=== PATIENT | female | born 1990 | race Caucasian/White ===

== ENCOUNTER 2017-07-01 11:24 | Inpatient (IN) | payer MEDICARE, OTHER ==
[~2017-07-01] VITALS: Ht 182.9 cm; Wt 68.0 kg
[~2017-07-01 11:24] MED LIST: CIPR-230 PO; CYCL-1 PO; HYDR-3965 PO
[2017-07-01] MEDS ORDERED: normal saline 1000ML IV soln IVB ONE ×2 (12:35→15:15)
[2017-07-01] MEDS ORDERED: diphenhydrAMINE 50 mg/ml inj IV ONE (12:40)
[2017-07-01] MEDS ORDERED: morphine 4 MG/ML inj SYRINge IV ONE ×2 (12:40→15:05)
[2017-07-01] MEDS ORDERED: famotidine/PF 10 mg/ml inj IV ONE (12:40)
[2017-07-01] MEDS ORDERED: morphine 4 MG/ML inj SYRINge IM ONE (13:30)
[2017-07-01] MEDS ORDERED: famotidine 20mg tablet PO ONE (13:30)
[2017-07-01] MEDS ORDERED: diphenhydrAMINE 50 mg/ml inj IM ONE (13:30)
[2017-07-01 13:46] LABS: BASOPHILS % (AUTO) 0 % (0-1); EOSINOPHILS # (AUTO) 0.4 X10'3 (0-0.9); EOSINOPHILS % (AUTO) 1.8 % (0-6); HEMATOCRIT 33.2 % (35.0-45.0); HEMOGLOBIN 11.3 g/dl (12.0-16.0); LYMPHOCYTES # (AUTO) 1.2 X10'3 (1.1-4.8); LYMPHOCYTES % (AUTO) 5.9 % (21-51); MEAN CORPUSCULAR HEMOGLOBIN 27.4 PG (27.0-31.0); MEAN CORPUSCULAR HGB CONC 34.1 % (33.0-36.5); MEAN CORPUSCULAR VOLUME 80.3 FL (78-98); MEAN PLATELET VOLUME 6.4 FL (7.4-10.4); MONOCYTES # (AUTO) 1.5 X10'3 (0-0.9); NEUTROPHILS # (AUTO) 17.8 X10'3 (1.8-7.7); NEUTROPHILS % (AUTO) 85.3 % (42-75); PLATELET COUNT 437 X10'3 (140-440); RED BLOOD COUNT 4.14 X10'6 (4.20-5.60); RED CELL DISTRIBUTION WIDTH 17.1 % (11.5-14.5); WHITE BLOOD COUNT 20.8 X10'3 (4.5-11.0)
[2017-07-01 14:07] LABS: D-DIMER 5.66 MG/L FEU (0-0.50); INR 1.1 INR; PARTIAL THROMBOPLASTIN TIME 29 SECONDS (22-32); PROTHROMBIN TIME 10.9 SECONDS (9.0-12.0)
[2017-07-01 14:16] LABS: ALANINE AMINOTRANSFERASE 139 U/L (12-78); ALBUMIN/GLOBULIN RATIO 0.3 (1.1-1.5); ALKALINE PHOSPHATASE 559 IU/L (46-116); ANION GAP 16 (8-16); ASPARTATE AMINO TRANSFERASE 45 U/L (10-37); BILIRUBIN,TOTAL 0.5 MG/DL (0.1-1.0); BLOOD UREA NITROGEN 96 MG/DL (7-18); BUN/CREATININE RATIO 15.1 (6.6-38.0); CALCIUM 11.4 MG/DL (8.5-10.1); CHLORIDE 104 MMOL/L (99-107); CREATINE KINASE 11 U/L (26-192); CREATININE 6.36 MG/DL (0.40-0.90); LACTATE DEHYDROGENASE 87 U/L (81-234); LIPASE 126 U/L (73-393); POTASSIUM 5.2 MMOL/L (3.5-5.1); SODIUM 135 MMOL/L (135-145); TOTAL CARBON DIOXIDE 15.4 MMOL/L (24-32); eGFR 8 ML/MIN
[2017-07-01 14:18] LABS: TOTAL CELLS COUNTED 100
[2017-07-01 14:19] LABS: ETHANOL < 0.010 GM/DL (0.0-0.010); GLUCOSE 98 MG/DL (70-104)
[2017-07-01 14:20] LABS: ANISOCYTOSIS 1+; PLATELET ESTIMATE NORMAL; ROULEAUX 1+; TOXIC GRANULATION 1+
[2017-07-01 14:37] LABS: CLARITY,URINE CLOUDY (Clear); COLOR,URINE YELLOW (Yellow); GLUCOSE, URINE NEGATIVE (Neg); KETONES,URINE NEGATIVE (Neg); LEUKOCYTE ESTERASE ,URINE LARGE (Neg); NITRITES, URINE NEGATIVE (Neg); OCCULT BLOOD,URINE LARGE (Neg); PROTEIN,URINE 100 mg/dl (Neg); UROBILINOGEN,URINE 0.2 E.U/dL (0.2-1.0)
[2017-07-01 14:44] LABS: UA COLLECTION TYPE CLN CATCH MIDSTREAM
[2017-07-01 14:49] LABS: BACTERIA,URINE 4+ /HPF (Neg); MUCUS STRANDS NONE SEEN /LPF (Neg); RBC,URINE 20-50 /HPF (0-2); SQUAMOUS EPITHELIAL CELL,UR FEW /LPF (FEW); WBC CLUMPS,URINE MANY /HPF (NEGATIVE); WBC,URINE TNTC /HPF (0-4)
[2017-07-01 14:51] LABS: URINE AMPHETAMINE SCREEN POSITIVE (Neg); URINE BARBITUATE SCREEN NEGATIVE (Neg); URINE BENZODIAZEPINES SCREEN NEGATIVE (Neg); URINE CANNABINOID SCREEN NEGATIVE (Neg); URINE COCAINE SCREEN NEGATIVE (Neg); URINE METHADONE SCREEN NEGATIVE (Neg); URINE OPIATE SCREEN POSITIVE (Neg); URINE PHENCYCLIDINE SCREEN NEGATIVE (Neg)
[2017-07-01 16:15] LABS: HCG SERUM QL NEGATIVE
[2017-07-01] MEDS ORDERED: mag hydrox/Alum hydrox/simeth 30ml oral suspension PO PRN (16:30)
[2017-07-01] MEDS ORDERED: ondansetron/PF 4mg/2ml inj IV PRN (16:30)
[2017-07-01] MEDS ORDERED: magnesium hydroxide 30ml (MOM) UD suspension PO PRN (16:30)
[2017-07-01] MEDS ORDERED: azithromycin/NS 500mg/250ml 250 ML IV ONE (16:35)
[2017-07-01] MEDS: normal saline 1000ml 1,000 ML IV SCH (16:51)
[2017-07-01] MEDS: HYDROcodone/acetaminophen 10/325mg tab PO PRN (19:00)
[2017-07-01] MEDS: heparin, porcine 5000 units/ml vial SQ SCH (20:00)
[2017-07-01] MEDS: acetaminophen 325mg tablet PO PRN (20:31)
[2017-07-01] MEDS ORDERED: HYDROmorphone 1 mg/ml syringe IV ONE (21:55)
[2017-07-01] MEDS ORDERED: LORazepam 2 mg/ml vial IV ONE (21:55)
[2017-07-01] MEDS ORDERED: HYDROmorphone inj. 0.5 MG/0.5 ML DISP.SYRIN ONE (22:18)
[2017-07-02] MEDS: normal saline 1000ml 1,000 ML IV SCH ×3 (03:19→21:29)
[2017-07-02] MEDS: HYDROcodone/acetaminophen 10/325mg tab PO PRN ×2 (05:21→21:30)
[2017-07-02] MEDS ORDERED: LORazepam 2 mg/ml vial IV ONE (06:25)
[2017-07-02] MEDS: heparin, porcine 5000 units/ml vial SQ SCH ×2 (08:00→20:00)
[2017-07-02 08:05] VITALS: BP 116/67
[2017-07-02 08:06] LABS: ALBUMIN 1.7 G/DL (3.4-5.0); ANION GAP 19 (8-16); BLOOD UREA NITROGEN 87 MG/DL (7-18); CALCIUM 10.5 MG/DL (8.5-10.1); CHLORIDE 108 MMOL/L (99-107); CREATININE 6.21 MG/DL (0.40-0.90); POTASSIUM 4.9 MMOL/L (3.5-5.1); SODIUM 139 MMOL/L (135-145); eGFR 8 ML/MIN
[2017-07-02 08:10] LABS: BASOPHILS % (AUTO) 0 % (0-1); EOSINOPHILS % (AUTO) 0.2 % (0-6); HEMATOCRIT 25.2 % (35.0-45.0); HEMOGLOBIN 8.6 g/dl (12.0-16.0); LYMPHOCYTES # (AUTO) 1.4 X10'3 (1.1-4.8); LYMPHOCYTES % (AUTO) 5.9 % (21-51); MEAN CORPUSCULAR HEMOGLOBIN 27.4 PG (27.0-31.0); MEAN CORPUSCULAR HGB CONC 34.2 % (33.0-36.5); MEAN CORPUSCULAR VOLUME 80.3 FL (78-98); MEAN PLATELET VOLUME 6.6 FL (7.4-10.4); MONOCYTES # (AUTO) 1.4 X10'3 (0-0.9); MONOCYTES % (AUTO) 5.7 % (2-12); NEUTROPHILS # (AUTO) 20.9 X10'3 (1.8-7.7); NEUTROPHILS % (AUTO) 88.2 % (42-75); PLATELET COUNT 378 X10'3 (140-440); RED BLOOD COUNT 3.13 X10'6 (4.20-5.60); RED CELL DISTRIBUTION WIDTH 16.1 % (11.5-14.5); WHITE BLOOD COUNT 23.6 X10'3 (4.5-11.0)
[2017-07-02 08:11] LABS: GLUCOSE 145 MG/DL (70-104)
[2017-07-02 08:13] LABS: TOTAL CARBON DIOXIDE 11.7 MMOL/L (24-32)
[2017-07-02] MEDS ORDERED: morphine 2 MG/ML inj. syringe IV PRN (08:40)
[2017-07-02] MEDS: morphine 4 MG/ML inj SYRINge IV PRN ×4 (09:14→19:50)
[2017-07-02] MEDS: CefTRIAXone inj 2,000 MG in normal saline 100ml IV soln 100 ML IV SCH (09:44)
[2017-07-02] MEDS: sodium bicarbonate 650mg tablet PO SCH ×3 (10:51→21:30)
[2017-07-02] MEDS: acetaminophen 325mg tablet PO PRN ×2 (10:59→18:32)
[2017-07-02 11:00] VITALS: BP 134/67
[2017-07-02] MEDS ORDERED: sodium bicarbonate (8.4%) inj. 100 MEQ in dextrose 5%-water 1,000 ML IV SCH (12:25)
[2017-07-02 15:00] VITALS: BP 140/72
[2017-07-02 17:35] LABS: ALBUMIN 1.6 G/DL (3.4-5.0); ANION GAP 14 (8-16); BLOOD UREA NITROGEN 81 MG/DL (7-18); CALCIUM 10.1 MG/DL (8.5-10.1); CHLORIDE 109 MMOL/L (99-107); CREATININE 6.22 MG/DL (0.40-0.90); POTASSIUM 4.7 MMOL/L (3.5-5.1); SODIUM 139 MMOL/L (135-145); TOTAL CARBON DIOXIDE 15.9 MMOL/L (24-32); eGFR 8 ML/MIN
[2017-07-02 17:36] LABS: GLUCOSE 107 MG/DL (70-104)
[2017-07-02 18:00] VITALS: BP 125/73
[2017-07-02 22:00] VITALS: BP 142/58
[2017-07-03] MEDS: WATER IV SCH ×2 (01:13→07:54)
[2017-07-03] MEDS: DEXTROSE 5% IV SCH ×2 (01:13→07:54)
[2017-07-03] MEDS: SODIUM ACETATE IV SCH ×2 (01:13→07:54)
[2017-07-03 02:00] VITALS: BP 146/70
[2017-07-03] MEDS: morphine 4 MG/ML inj SYRINge IV PRN ×2 (02:52→20:15)
[2017-07-03] MEDS: VANCOMYCIN LEVEL IV SCH (03:00)
[2017-07-03 05:15] LABS: BASOPHILS % (AUTO) 0.2 % (0-1); EOSINOPHILS # (AUTO) 0.3 X10'3 (0-0.9); EOSINOPHILS % (AUTO) 1.5 % (0-6); HEMATOCRIT 23.8 % (35.0-45.0); HEMOGLOBIN 8.1 g/dl (12.0-16.0); LYMPHOCYTES % (AUTO) 9.6 % (21-51); MEAN CORPUSCULAR HEMOGLOBIN 27.5 PG (27.0-31.0); MEAN CORPUSCULAR HGB CONC 33.8 % (33.0-36.5); MEAN CORPUSCULAR VOLUME 81.3 FL (78-98); MEAN PLATELET VOLUME 6.7 FL (7.4-10.4); MONOCYTES # (AUTO) 2.1 X10'3 (0-0.9); MONOCYTES % (AUTO) 9.8 % (2-12); NEUTROPHILS # (AUTO) 16.7 X10'3 (1.8-7.7); NEUTROPHILS % (AUTO) 78.9 % (42-75); PLATELET COUNT 361 X10'3 (140-440); RED BLOOD COUNT 2.92 X10'6 (4.20-5.60); RED CELL DISTRIBUTION WIDTH 16.5 % (11.5-14.5); WHITE BLOOD COUNT 21.2 X10'3 (4.5-11.0)
[2017-07-03 05:30] VITALS: BP 148/65
[2017-07-03 05:51] LABS: ALBUMIN 1.5 G/DL (3.4-5.0); ANION GAP 14 (8-16); BLOOD UREA NITROGEN 75 MG/DL (7-18); BUN/CREATININE RATIO 12.6 (6.6-38.0); CALCIUM 10.2 MG/DL (8.5-10.1); CHLORIDE 109 MMOL/L (99-107); CREATININE 5.94 MG/DL (0.40-0.90); GLUCOSE 109 MG/DL (70-104); POTASSIUM 4.4 MMOL/L (3.5-5.1); SODIUM 141 MMOL/L (135-145); TOTAL CARBON DIOXIDE 17.8 MMOL/L (24-32); eGFR 8 ML/MIN
[2017-07-03] MEDS ORDERED: vancomycin/NS 1 GM ADD-VANTAGE 250 ML IV PRN (06:00)
[2017-07-03 06:11] LABS: ANISOCYTOSIS 1+; PLATELET ESTIMATE NORMAL; TOTAL CELLS COUNTED 100
[2017-07-03] MEDS: sodium bicarbonate 650mg tablet PO SCH (07:54)
[2017-07-03] MEDS: HYDROcodone/acetaminophen 10/325mg tab PO PRN ×4 (07:56→22:38)
[2017-07-03] MEDS: normal saline 1000ml 1,000 ML IV SCH (07:56)
[2017-07-03] MEDS: heparin, porcine 5000 units/ml vial SQ SCH ×2 (08:00→20:00)
[2017-07-03] MEDS: CefTRIAXone inj 2,000 MG in normal saline 100ml IV soln 100 ML IV SCH (08:04)
[2017-07-03 09:54] LABS: ALANINE AMINOTRANSFERASE 57 U/L (12-78); ALBUMIN/GLOBULIN RATIO 0.3 (1.1-1.5); ALKALINE PHOSPHATASE 399 IU/L (46-116); ASPARTATE AMINO TRANSFERASE 24 U/L (10-37); BILIRUBIN,DIRECT 0.1 MG/DL (0-0.3); BILIRUBIN,TOTAL 0.3 MG/DL (0.1-1.0); TOTAL PROTEIN 7.2 G/DL (6.4-8.2)
[2017-07-03 11:00] VITALS: BP 137/77
[2017-07-03 15:00] VITALS: BP 137/77
[2017-07-03] MEDS ORDERED: ringers solution, lacted 1,000 ML IV SCH (16:45)
[2017-07-03] MEDS ORDERED: epoetin 20,000 units/ml inj IV ONE (17:45)
[2017-07-03] MEDS: sodium bicarbonate (8.4%) inj. 100 MEQ in dextrose 5%-water 1,000 ML IV SCH ×2 (18:12→23:08)
[2017-07-03 18:28] LABS: TOTAL VOLUME 24HRS,URINE 5850 ML
[2017-07-03 19:00] VITALS: BP 143/69
[2017-07-03] MEDS: lactobacillus rhamnosus 10,000 MMU CELLS/CAPSULE PO SCH (20:16)
[2017-07-03 23:00] VITALS: BP 137/75
[2017-07-04] MEDS: morphine 4 MG/ML inj SYRINge IV PRN ×6 (01:42→23:07)
[2017-07-04 03:00] VITALS: BP 148/80
[2017-07-04] MEDS: VANCOMYCIN LEVEL IV SCH (03:00)
[2017-07-04 05:36] LABS: BASOPHILS % (AUTO) 0.3 % (0-1); EOSINOPHILS # (AUTO) 0.3 X10'3 (0-0.9); EOSINOPHILS % (AUTO) 1.7 % (0-6); HEMATOCRIT 23.6 % (35.0-45.0); LYMPHOCYTES # (AUTO) 2.3 X10'3 (1.1-4.8); LYMPHOCYTES % (AUTO) 12.1 % (21-51); MEAN CORPUSCULAR HEMOGLOBIN 27.4 PG (27.0-31.0); MEAN CORPUSCULAR VOLUME 80.3 FL (78-98); MEAN PLATELET VOLUME 6.5 FL (7.4-10.4); MONOCYTES % (AUTO) 10.2 % (2-12); NEUTROPHILS # (AUTO) 14.7 X10'3 (1.8-7.7); NEUTROPHILS % (AUTO) 75.7 % (42-75); PLATELET COUNT 351 X10'3 (140-440); RED BLOOD COUNT 2.93 X10'6 (4.20-5.60); RED CELL DISTRIBUTION WIDTH 15.8 % (11.5-14.5); WHITE BLOOD COUNT 19.4 X10'3 (4.5-11.0)
[2017-07-04] MEDS: HYDROcodone/acetaminophen 10/325mg tab PO PRN (05:45)
[2017-07-04 05:51] LABS: % IRON SATURATION 8 % (11-46); IRON 13 UG/DL (49-151); TOTAL IRON BINDING CAPACITY 164 UG/DL (259-388)
[2017-07-04 05:58] LABS: ALBUMIN 1.4 G/DL (3.4-5.0); ANION GAP 11 (8-16); BLOOD UREA NITROGEN 70 MG/DL (7-18); BUN/CREATININE RATIO 11.8 (6.6-38.0); CHLORIDE 105 MMOL/L (99-107); CREATININE 5.95 MG/DL (0.40-0.90); GLUCOSE 107 MG/DL (70-104); SODIUM 138 MMOL/L (135-145); TOTAL CARBON DIOXIDE 21.7 MMOL/L (24-32); VANCOMYCIN,RANDOM 16.6 UG/ML; eGFR 8 ML/MIN
[2017-07-04 06:00] VITALS: BP 144/77
[2017-07-04 06:18] LABS: FERRITIN 192 NG/ML (8-252)
[2017-07-04] MEDS: sodium bicarbonate (8.4%) inj. 100 MEQ in dextrose 5%-water 1,000 ML IV SCH ×2 (07:56→15:37)
[2017-07-04] MEDS: heparin, porcine 5000 units/ml vial SQ SCH ×2 (08:00→20:00)
[2017-07-04] MEDS: lactobacillus rhamnosus 10,000 MMU CELLS/CAPSULE PO SCH ×2 (08:29→20:21)
[2017-07-04] MEDS: CefTRIAXone inj 2,000 MG in normal saline 100ml IV soln 100 ML IV SCH (08:30)
[2017-07-04 11:00] VITALS: BP 139/86
[2017-07-04 15:00] VITALS: BP 142/79
[2017-07-04 19:00] VITALS: BP 138/58
[2017-07-04 23:00] VITALS: BP 140/70
[2017-07-05] MEDS: sodium bicarbonate (8.4%) inj. 100 MEQ in dextrose 5%-water 1,000 ML IV SCH ×3 (00:40→23:26)
[2017-07-05 03:00] VITALS: BP 144/71
[2017-07-05] MEDS: VANCOMYCIN LEVEL IV SCH (03:00)
[2017-07-05] MEDS: morphine 4 MG/ML inj SYRINge IV PRN ×6 (03:17→23:26)
[2017-07-05 06:00] VITALS: BP 142/79
[2017-07-05 06:11] LABS: BASOPHILS % (AUTO) 0.1 % (0-1); EOSINOPHILS # (AUTO) 0.5 X10'3 (0-0.9); EOSINOPHILS % (AUTO) 2.5 % (0-6); HEMATOCRIT 24.4 % (35.0-45.0); HEMOGLOBIN 8.3 g/dl (12.0-16.0); LYMPHOCYTES # (AUTO) 2.5 X10'3 (1.1-4.8); LYMPHOCYTES % (AUTO) 12.5 % (21-51); MEAN CORPUSCULAR HEMOGLOBIN 27.3 PG (27.0-31.0); MEAN CORPUSCULAR HGB CONC 33.9 % (33.0-36.5); MEAN CORPUSCULAR VOLUME 80.4 FL (78-98); MEAN PLATELET VOLUME 6.5 FL (7.4-10.4); MONOCYTES # (AUTO) 1.7 X10'3 (0-0.9); MONOCYTES % (AUTO) 8.4 % (2-12); NEUTROPHILS # (AUTO) 15.6 X10'3 (1.8-7.7); NEUTROPHILS % (AUTO) 76.5 % (42-75); PLATELET COUNT 375 X10'3 (140-440); RED BLOOD COUNT 3.04 X10'6 (4.20-5.60); RED CELL DISTRIBUTION WIDTH 15.6 % (11.5-14.5); WHITE BLOOD COUNT 20.4 X10'3 (4.5-11.0)
[2017-07-05 06:24] LABS: ALBUMIN 1.5 G/DL (3.4-5.0); ANION GAP 13 (8-16); BLOOD UREA NITROGEN 69 MG/DL (7-18); BUN/CREATININE RATIO 12.5 (6.6-38.0); CALCIUM 10.5 MG/DL (8.5-10.1); CHLORIDE 102 MMOL/L (99-107); CREATININE 5.53 MG/DL (0.40-0.90); GLUCOSE 108 MG/DL (70-104); POTASSIUM 4.2 MMOL/L (3.5-5.1); SODIUM 138 MMOL/L (135-145); TOTAL CARBON DIOXIDE 22.8 MMOL/L (24-32); VANCOMYCIN,RANDOM 11.6 UG/ML; eGFR 9 ML/MIN
[2017-07-05] MEDS: lactobacillus rhamnosus 10,000 MMU CELLS/CAPSULE PO SCH ×2 (07:18→20:41)
[2017-07-05] MEDS: heparin, porcine 5000 units/ml vial SQ SCH ×3 (07:19→20:40)
[2017-07-05] MEDS ORDERED: vancomycin/NS 1 GM ADD-VANTAGE 250 ML IV ONE (07:55)
[2017-07-05] MEDS ORDERED: pantoprazole 40 MG vial IV SCH (08:00)
[2017-07-05] MEDS: CefTRIAXone inj 2,000 MG in normal saline 100ml IV soln 100 ML IV SCH (09:03)
[2017-07-05] MEDS ORDERED: dextrose 5%-1/2 normal saline 1,000 ML IV SCH (10:25)
[2017-07-05 11:00] VITALS: BP 133/87
[2017-07-05] MEDS: cefazolin 1gm/NS 100mL 100 ML IV SCH (11:59)
[2017-07-05 15:00] VITALS: BP 142/85
[2017-07-05] MEDS: nicotine 7mg patch - 24hr TD SCH (15:23)
[2017-07-05] MEDS: HYDROcodone/acetaminophen 10/325mg tab PO PRN (15:29)
[2017-07-05 18:00] VITALS: BP 139/83
[2017-07-05] MEDS: famotidine 20mg tablet PO SCH (20:40)
[2017-07-05 22:00] VITALS: BP 138/82
[2017-07-06 02:00] VITALS: BP 142/80
[2017-07-06] MEDS: VANCOMYCIN LEVEL IV SCH (03:00)
[2017-07-06] MEDS: HYDROcodone/acetaminophen 10/325mg tab PO PRN ×4 (03:15→21:51)
[2017-07-06] MEDS: sodium bicarbonate (8.4%) inj. 100 MEQ in dextrose 5%-water 1,000 ML IV SCH ×4 (03:56→23:31)
[2017-07-06 05:21] LABS: BASOPHILS % (AUTO) 0.2 % (0-1); EOSINOPHILS # (AUTO) 0.5 X10'3 (0-0.9); EOSINOPHILS % (AUTO) 2.5 % (0-6); HEMATOCRIT 25.2 % (35.0-45.0); HEMOGLOBIN 8.4 g/dl (12.0-16.0); LYMPHOCYTES # (AUTO) 2.4 X10'3 (1.1-4.8); LYMPHOCYTES % (AUTO) 12.7 % (21-51); MEAN CORPUSCULAR HEMOGLOBIN 27.1 PG (27.0-31.0); MEAN CORPUSCULAR HGB CONC 33.3 % (33.0-36.5); MEAN CORPUSCULAR VOLUME 81.5 FL (78-98); MEAN PLATELET VOLUME 6.5 FL (7.4-10.4); MONOCYTES # (AUTO) 1.4 X10'3 (0-0.9); MONOCYTES % (AUTO) 7.6 % (2-12); NEUTROPHILS # (AUTO) 14.7 X10'3 (1.8-7.7); PLATELET COUNT 378 X10'3 (140-440); RED BLOOD COUNT 3.09 X10'6 (4.20-5.60)
[2017-07-06 06:00] VITALS: BP 123/87
[2017-07-06 06:21] LABS: ALBUMIN 1.5 G/DL (3.4-5.0); ANION GAP 13 (8-16); BLOOD UREA NITROGEN 68 MG/DL (7-18); BUN/CREATININE RATIO 12.2 (6.6-38.0); CALCIUM 10.3 MG/DL (8.5-10.1); CHLORIDE 103 MMOL/L (99-107); CREATININE 5.59 MG/DL (0.40-0.90); GLUCOSE 100 MG/DL (70-104); POTASSIUM 4.2 MMOL/L (3.5-5.1); SODIUM 140 MMOL/L (135-145); TOTAL CARBON DIOXIDE 23.7 MMOL/L (24-32); VANCOMYCIN,RANDOM 25.1 UG/ML; eGFR 9 ML/MIN
[2017-07-06] MEDS: heparin, porcine 5000 units/ml vial SQ SCH ×2 (08:00→19:10)
[2017-07-06] MEDS ORDERED: metoprolol tartrate 12.5mg (1/2 tablet) PO SCH (08:00)
[2017-07-06] MEDS: nicotine 7mg patch - 24hr TD SCH (08:58)
[2017-07-06] MEDS: lactobacillus rhamnosus 10,000 MMU CELLS/CAPSULE PO SCH ×2 (08:58→19:07)
[2017-07-06] MEDS: famotidine 20mg tablet PO SCH ×2 (08:58→19:07)
[2017-07-06] MEDS: cefazolin 1gm/NS 100mL 100 ML IV SCH (08:58)
[2017-07-06] MEDS: morphine 4 MG/ML inj SYRINge IV PRN ×4 (08:59→22:32)
[2017-07-06 11:00] VITALS: BP 136/80
[2017-07-06 15:00] VITALS: BP 120/66
[2017-07-06 19:00] VITALS: BP 125/76
[2017-07-06] MEDS: metoprolol tartrate 25mg tablet PO SCH (19:07)
[2017-07-06 23:00] VITALS: BP 117/70
[2017-07-07] MEDS: morphine 4 MG/ML inj SYRINge IV PRN ×5 (02:36→23:45)
[2017-07-07 03:00] VITALS: BP 115/69
[2017-07-07] MEDS: VANCOMYCIN LEVEL IV SCH (03:00)
[2017-07-07 06:00] VITALS: BP 122/71
[2017-07-07 06:40] LABS: BASOPHILS % (AUTO) 0.2 % (0-1); EOSINOPHILS # (AUTO) 0.3 X10'3 (0-0.9); EOSINOPHILS % (AUTO) 1.7 % (0-6); HEMATOCRIT 25.2 % (35.0-45.0); HEMOGLOBIN 8.5 g/dl (12.0-16.0); LYMPHOCYTES # (AUTO) 2.5 X10'3 (1.1-4.8); LYMPHOCYTES % (AUTO) 14.3 % (21-51); MEAN CORPUSCULAR HEMOGLOBIN 27.8 PG (27.0-31.0); MEAN CORPUSCULAR HGB CONC 33.7 % (33.0-36.5); MEAN CORPUSCULAR VOLUME 82.6 FL (78-98); MEAN PLATELET VOLUME 7.1 FL (7.4-10.4); MONOCYTES # (AUTO) 1.3 X10'3 (0-0.9); MONOCYTES % (AUTO) 7.3 % (2-12); NEUTROPHILS # (AUTO) 13.5 X10'3 (1.8-7.7); NEUTROPHILS % (AUTO) 76.5 % (42-75); PLATELET COUNT 363 X10'3 (140-440); RED BLOOD COUNT 3.06 X10'6 (4.20-5.60); RED CELL DISTRIBUTION WIDTH 15.4 % (11.5-14.5); WHITE BLOOD COUNT 17.7 X10'3 (4.5-11.0)
[2017-07-07 06:56] LABS: ALBUMIN 1.4 G/DL (3.4-5.0); ANION GAP 12 (8-16); BLOOD UREA NITROGEN 70 MG/DL (7-18); BUN/CREATININE RATIO 11.4 (6.6-38.0); CALCIUM 10.4 MG/DL (8.5-10.1); CHLORIDE 99 MMOL/L (99-107); CREATININE 6.13 MG/DL (0.40-0.90); GLUCOSE 97 MG/DL (70-104); POTASSIUM 4.5 MMOL/L (3.5-5.1); SODIUM 136 MMOL/L (135-145); TOTAL CARBON DIOXIDE 25.4 MMOL/L (24-32); eGFR 8 ML/MIN
[2017-07-07] MEDS: famotidine 20mg tablet PO SCH ×2 (07:40→20:03)
[2017-07-07] MEDS: lactobacillus rhamnosus 10,000 MMU CELLS/CAPSULE PO SCH ×2 (07:42→20:03)
[2017-07-07] MEDS: HYDROcodone/acetaminophen 10/325mg tab PO PRN ×2 (07:42→22:30)
[2017-07-07] MEDS: metoprolol tartrate 25mg tablet PO SCH ×2 (07:42→20:03)
[2017-07-07] MEDS: nicotine 7mg patch - 24hr TD SCH (07:43)
[2017-07-07] MEDS: cefazolin 1gm/NS 100mL 100 ML IV SCH (07:43)
[2017-07-07] MEDS: heparin, porcine 5000 units/ml vial SQ SCH ×2 (08:00→20:00)
[2017-07-07 11:00] VITALS: BP 114/72
[2017-07-07] MEDS: sodium chloride 0.45% 1,000 ML IV SCH ×2 (13:20→21:05)
[2017-07-07 15:00] VITALS: BP 129/86
[2017-07-07 19:00] VITALS: BP 110/79
[2017-07-07] MEDS: diphenhydrAMINE 25mg capsule PO PRN (22:30)
[2017-07-07 23:00] VITALS: BP 103/64
[2017-07-08] VITALS (12 sets, daily range): BP systolic 95–121; BP diastolic 55–68
[2017-07-08] MEDS: morphine 4 MG/ML inj SYRINge IV PRN ×5 (02:51→22:13)
[2017-07-08] MEDS: sodium chloride 0.45% 1,000 ML IV SCH ×3 (05:05→20:11)
[2017-07-08 06:15] LABS: BASOPHILS % (AUTO) 0.3 % (0-1); EOSINOPHILS # (AUTO) 0.4 X10'3 (0-0.9); EOSINOPHILS % (AUTO) 2.5 % (0-6); LYMPHOCYTES % (AUTO) 17.9 % (21-51); MEAN CORPUSCULAR HEMOGLOBIN 27.5 PG (27.0-31.0); MEAN CORPUSCULAR HGB CONC 33.2 % (33.0-36.5); MEAN CORPUSCULAR VOLUME 82.8 FL (78-98); MEAN PLATELET VOLUME 7.4 FL (7.4-10.4); MONOCYTES # (AUTO) 1.3 X10'3 (0-0.9); MONOCYTES % (AUTO) 7.5 % (2-12); NEUTROPHILS % (AUTO) 71.8 % (42-75); PLATELET COUNT 320 X10'3 (140-440); RED BLOOD COUNT 3.27 X10'6 (4.20-5.60); RED CELL DISTRIBUTION WIDTH 15.3 % (11.5-14.5); WHITE BLOOD COUNT 16.7 X10'3 (4.5-11.0)
[2017-07-08] MEDS: heparin, porcine 5000 units/ml vial SQ SCH ×2 (06:21→20:00)
[2017-07-08 06:23] LABS: ALBUMIN 1.5 G/DL (3.4-5.0); ANION GAP 14 (8-16); BLOOD UREA NITROGEN 78 MG/DL (7-18); BUN/CREATININE RATIO 11.6 (6.6-38.0); CALCIUM 10.7 MG/DL (8.5-10.1); CHLORIDE 100 MMOL/L (99-107); CREATININE 6.74 MG/DL (0.40-0.90); POTASSIUM 4.9 MMOL/L (3.5-5.1); SODIUM 135 MMOL/L (135-145); TOTAL CARBON DIOXIDE 20.8 MMOL/L (24-32); eGFR 7 ML/MIN
[2017-07-08 06:25] LABS: GLUCOSE 90 MG/DL (70-104)
[2017-07-08] MEDS: lactobacillus rhamnosus 10,000 MMU CELLS/CAPSULE PO SCH ×2 (07:44→20:09)
[2017-07-08] MEDS: nicotine 7mg patch - 24hr TD SCH (07:45)
[2017-07-08] MEDS: famotidine 20mg tablet PO SCH ×2 (07:45→20:09)
[2017-07-08] MEDS: metoprolol tartrate 25mg tablet PO SCH ×2 (07:45→20:09)
[2017-07-08] MEDS: cefazolin 1gm/NS 100mL 100 ML IV SCH (07:46)
[2017-07-08] MEDS: HYDROcodone/acetaminophen 10/325mg tab PO PRN (20:09)
[2017-07-09] VITALS (7 sets, daily range): BP systolic 106–160; BP diastolic 54–68
[2017-07-09] MEDS: HYDROcodone/acetaminophen 10/325mg tab PO PRN ×2 (00:26→15:58)
[2017-07-09] MEDS: sodium chloride 0.45% 1,000 ML IV SCH ×5 (01:41→23:25)
[2017-07-09] MEDS: morphine 4 MG/ML inj SYRINge IV PRN ×2 (01:56→20:29)
[2017-07-09] MEDS: diphenhydrAMINE 25mg capsule PO PRN (01:57)
[2017-07-09 06:15] LABS: BASOPHILS % (AUTO) 0.1 % (0-1); EOSINOPHILS # (AUTO) 0.5 X10'3 (0-0.9); EOSINOPHILS % (AUTO) 3.5 % (0-6); HEMOGLOBIN 7.2 g/dl (12.0-16.0); LYMPHOCYTES # (AUTO) 2.5 X10'3 (1.1-4.8); LYMPHOCYTES % (AUTO) 17.7 % (21-51); MEAN CORPUSCULAR HGB CONC 32.9 % (33.0-36.5); MEAN PLATELET VOLUME 7.2 FL (7.4-10.4); MONOCYTES # (AUTO) 1.2 X10'3 (0-0.9); MONOCYTES % (AUTO) 8.6 % (2-12); NEUTROPHILS # (AUTO) 9.9 X10'3 (1.8-7.7); NEUTROPHILS % (AUTO) 70.1 % (42-75); PLATELET COUNT 352 X10'3 (140-440); RED BLOOD COUNT 2.66 X10'6 (4.20-5.60); WHITE BLOOD COUNT 14.1 X10'3 (4.5-11.0)
[2017-07-09 06:39] LABS: ALBUMIN 1.4 G/DL (3.4-5.0); ANION GAP 16 (8-16); BLOOD UREA NITROGEN 82 MG/DL (7-18); BUN/CREATININE RATIO 11.7 (6.6-38.0); CALCIUM 10.2 MG/DL (8.5-10.1); CHLORIDE 102 MMOL/L (99-107); CREATININE 7.03 MG/DL (0.40-0.90); POTASSIUM 4.7 MMOL/L (3.5-5.1); SODIUM 136 MMOL/L (135-145); TOTAL CARBON DIOXIDE 18.1 MMOL/L (24-32); eGFR 7 ML/MIN
[2017-07-09 06:41] LABS: GLUCOSE 98 MG/DL (70-104)
[2017-07-09 06:52] LABS: HEMATOCRIT 21.8 % (35.0-45.0)
[2017-07-09] MEDS: heparin, porcine 5000 units/ml vial SQ SCH ×2 (07:20→19:32)
[2017-07-09] MEDS: lactobacillus rhamnosus 10,000 MMU CELLS/CAPSULE PO SCH ×2 (08:45→20:29)
[2017-07-09] MEDS: famotidine 20mg tablet PO SCH ×2 (08:45→20:30)
[2017-07-09] MEDS: metoprolol tartrate 25mg tablet PO SCH ×2 (08:45→20:30)
[2017-07-09] MEDS: nicotine 7mg patch - 24hr TD SCH (08:45)
[2017-07-09] MEDS: cefazolin 1gm/NS 100mL 100 ML IV SCH (08:46)
[2017-07-09] MEDS ORDERED: LIDOcaine 1%/PF (10mg/ml) 5ml vial ONE ×2 (12:06→12:16)
[2017-07-09] MEDS ORDERED: LIDOcaine 1%/PF (10mg/ml) 5ml vial SQ ONE (12:10)
[2017-07-09] MEDS ORDERED: heparin 1,000 units/ml 10ml inj ICATH ONE (12:10)
[2017-07-09] MEDS ORDERED: epoetin 20,000 units/ml inj SQ ONE (12:10)
[2017-07-09] MEDS ORDERED: midazolam 2 mg/2 ml injection IV PRN (12:10)
[2017-07-09] MEDS ORDERED: fentaNYL/PF 50MCG/1 ML 2ML syringe IV PRN (12:10)
[2017-07-09] MEDS ORDERED: heparin 1,000unit/ml 10ml vial 10 ML ONE (12:38)
[2017-07-09] MEDS ORDERED: midazolam 2 mg/2 ml injection ONE (12:39)
[2017-07-09] MEDS ORDERED: fentaNYL/PF 50MCG/1 ML 2ML syringe ONE ×2 (12:39→13:15)
[2017-07-09 18:52] LABS: FERRITIN 160 NG/ML (8-252)
[2017-07-09 18:58] LABS: % IRON SATURATION 9 % (11-46); IRON 16 UG/DL (49-151); TOTAL IRON BINDING CAPACITY 171 UG/DL (259-388)
[2017-07-10] VITALS (10 sets, daily range): BP systolic 90–141; BP diastolic 51–83
[2017-07-10] MEDS: diphenhydrAMINE 25mg capsule PO PRN (02:56)
[2017-07-10] MEDS: morphine 4 MG/ML inj SYRINge IV PRN ×3 (02:57→20:09)
[2017-07-10] MEDS: sodium chloride 0.45% 1,000 ML IV SCH (06:02)
[2017-07-10] MEDS: nicotine 7mg patch - 24hr TD SCH (07:27)
[2017-07-10] MEDS: cefazolin 1gm/NS 100mL 100 ML IV SCH (07:27)
[2017-07-10] MEDS: famotidine 20mg tablet PO SCH ×2 (07:28→20:00)
[2017-07-10] MEDS: metoprolol tartrate 25mg tablet PO SCH ×2 (07:28→20:00)
[2017-07-10] MEDS: lactobacillus rhamnosus 10,000 MMU CELLS/CAPSULE PO SCH ×2 (07:28→19:59)
[2017-07-10] MEDS: heparin, porcine 5000 units/ml vial SQ SCH ×2 (08:00→20:00)
[2017-07-10 08:17] LABS: BASOPHILS # (AUTO) 0.1 X10'3 (0-0.2); BASOPHILS % (AUTO) 0.5 % (0-1); EOSINOPHILS # (AUTO) 0.5 X10'3 (0-0.9); EOSINOPHILS % (AUTO) 4.6 % (0-6); LYMPHOCYTES # (AUTO) 2.7 X10'3 (1.1-4.8); LYMPHOCYTES % (AUTO) 25.6 % (21-51); MEAN CORPUSCULAR HEMOGLOBIN 27.2 PG (27.0-31.0); MEAN CORPUSCULAR HGB CONC 32.9 % (33.0-36.5); MEAN CORPUSCULAR VOLUME 82.5 FL (78-98); MONOCYTES # (AUTO) 0.8 X10'3 (0-0.9); MONOCYTES % (AUTO) 7.7 % (2-12); NEUTROPHILS # (AUTO) 6.4 X10'3 (1.8-7.7); NEUTROPHILS % (AUTO) 61.6 % (42-75); PLATELET COUNT 367 X10'3 (140-440); RED BLOOD COUNT 2.55 X10'6 (4.20-5.60); RED CELL DISTRIBUTION WIDTH 15.5 % (11.5-14.5); WHITE BLOOD COUNT 10.4 X10'3 (4.5-11.0)
[2017-07-10 08:23] LABS: HEMOGLOBIN 6.9 g/dl (12.0-16.0)
[2017-07-10 08:41] LABS: ALANINE AMINOTRANSFERASE 17 U/L (12-78); ALBUMIN 1.4 G/DL (3.4-5.0); ALBUMIN/GLOBULIN RATIO 0.2 (1.1-1.5); ALKALINE PHOSPHATASE 350 IU/L (46-116); ANION GAP 14 (8-16); ASPARTATE AMINO TRANSFERASE 32 U/L (10-37); BILIRUBIN,TOTAL 0.1 MG/DL (0.1-1.0); BLOOD UREA NITROGEN 78 MG/DL (7-18); BUN/CREATININE RATIO 11.2 (6.6-38.0); CALCIUM 10.4 MG/DL (8.5-10.1); CHLORIDE 108 MMOL/L (99-107); CREATININE 6.97 MG/DL (0.40-0.90); GLUCOSE 95 MG/DL (70-104); POTASSIUM 5.1 MMOL/L (3.5-5.1); SODIUM 139 MMOL/L (135-145); TOTAL CARBON DIOXIDE 17.4 MMOL/L (24-32); TOTAL PROTEIN 8.5 G/DL (6.4-8.2); eGFR 7 ML/MIN
[2017-07-10] MEDS ORDERED: epoetin 20,000 units/ml inj IV ONE (11:05)
[2017-07-10] MEDS ORDERED: sodium ferric gluc complex inj 25 MG in normal saline 50ml IV soln 48 ML IV ONE (14:40)
[2017-07-11] MEDS: morphine 4 MG/ML inj SYRINge IV PRN ×3 (00:31→16:02)
[2017-07-11 03:00] VITALS: BP 116/68
[2017-07-11] MEDS: sodium chloride 0.45% 1,000 ML IV SCH ×2 (04:40→12:36)
[2017-07-11 05:08] LABS: BASOPHILS # (AUTO) 0.1 X10'3 (0-0.2); BASOPHILS % (AUTO) 0.6 % (0-1); EOSINOPHILS # (AUTO) 0.4 X10'3 (0-0.9); EOSINOPHILS % (AUTO) 4.6 % (0-6); HEMATOCRIT 23.9 % (35.0-45.0); LYMPHOCYTES # (AUTO) 3.1 X10'3 (1.1-4.8); LYMPHOCYTES % (AUTO) 33.4 % (21-51); MEAN CORPUSCULAR HEMOGLOBIN 27.1 PG (27.0-31.0); MEAN CORPUSCULAR HGB CONC 33.5 % (33.0-36.5); MEAN CORPUSCULAR VOLUME 80.9 FL (78-98); MEAN PLATELET VOLUME 6.8 FL (7.4-10.4); MONOCYTES # (AUTO) 0.7 X10'3 (0-0.9); MONOCYTES % (AUTO) 7.7 % (2-12); NEUTROPHILS % (AUTO) 53.7 % (42-75); PLATELET COUNT 440 X10'3 (140-440); RED BLOOD COUNT 2.95 X10'6 (4.20-5.60); RED CELL DISTRIBUTION WIDTH 15.1 % (11.5-14.5); WHITE BLOOD COUNT 9.3 X10'3 (4.5-11.0)
[2017-07-11 05:37] LABS: ALANINE AMINOTRANSFERASE 21 U/L (12-78); ALBUMIN 1.6 G/DL (3.4-5.0); ALBUMIN/GLOBULIN RATIO 0.2 (1.1-1.5); ALKALINE PHOSPHATASE 340 IU/L (46-116); ANION GAP 12 (8-16); ASPARTATE AMINO TRANSFERASE 44 U/L (10-37); BILIRUBIN,TOTAL 0.2 MG/DL (0.1-1.0); BLOOD UREA NITROGEN 78 MG/DL (7-18); BUN/CREATININE RATIO 10.9 (6.6-38.0); CALCIUM 10.3 MG/DL (8.5-10.1); CHLORIDE 110 MMOL/L (99-107); CREATININE 7.16 MG/DL (0.40-0.90); POTASSIUM 5.7 MMOL/L (3.5-5.1); SODIUM 141 MMOL/L (135-145); TOTAL CARBON DIOXIDE 18.6 MMOL/L (24-32); TOTAL PROTEIN 8.8 G/DL (6.4-8.2); eGFR 7 ML/MIN
[2017-07-11 05:39] LABS: GLUCOSE 93 MG/DL (70-104)
[2017-07-11] MEDS: heparin, porcine 5000 units/ml vial SQ SCH ×3 (08:00→19:27)
[2017-07-11] MEDS: metoprolol tartrate 25mg tablet PO SCH ×2 (08:14→19:27)
[2017-07-11] MEDS: famotidine 20mg tablet PO SCH ×2 (08:14→19:27)
[2017-07-11] MEDS: lactobacillus rhamnosus 10,000 MMU CELLS/CAPSULE PO SCH ×2 (08:14→19:27)
[2017-07-11] MEDS: cefazolin 1gm/NS 100mL 100 ML IV SCH (08:16)
[2017-07-11] MEDS: nicotine 7mg patch - 24hr TD SCH (08:17)
[2017-07-11 08:47] VITALS: BP 127/79
[2017-07-11] MEDS ORDERED: heparin 1,000 units/ml 10ml inj IV ONE (08:55)
[2017-07-11] MEDS ORDERED: albumin (human) 25% 100ml IV 100 ML IV PRN (08:55)
[2017-07-11] MEDS ORDERED: epoetin 20,000 units/ml inj IV ONE (08:55)
[2017-07-11] MEDS ORDERED: heparin 1,000unit/ml 10ml vial 10 ML IV ONE (08:55)
[2017-07-11] MEDS ORDERED: heparin 1,000 units/ml 10ml inj HE ONE ×2 (09:00)
[2017-07-11] MEDS: sodium ferric gluc complex inj 125 MG in normal saline 100ml IV soln 100 ML IV SCH (09:12)
[2017-07-11 11:00] VITALS: BP 126/78
[2017-07-11 15:00] VITALS: BP 114/87
[2017-07-11 19:00] VITALS: BP 112/70
[2017-07-11 23:00] VITALS: BP 120/62
[2017-07-12] VITALS (7 sets, daily range): BP systolic 103–121; BP diastolic 60–77
[2017-07-12 05:52] LABS: BASOPHILS % (AUTO) 0.5 % (0-1); EOSINOPHILS # (AUTO) 0.3 X10'3 (0-0.9); EOSINOPHILS % (AUTO) 3.1 % (0-6); HEMATOCRIT 26.7 % (35.0-45.0); LYMPHOCYTES # (AUTO) 3.2 X10'3 (1.1-4.8); MEAN CORPUSCULAR HEMOGLOBIN 26.9 PG (27.0-31.0); MEAN CORPUSCULAR HGB CONC 33.5 % (33.0-36.5); MEAN CORPUSCULAR VOLUME 80.1 FL (78-98); MEAN PLATELET VOLUME 6.5 FL (7.4-10.4); MONOCYTES # (AUTO) 0.7 X10'3 (0-0.9); MONOCYTES % (AUTO) 8.5 % (2-12); NEUTROPHILS # (AUTO) 4.3 X10'3 (1.8-7.7); NEUTROPHILS % (AUTO) 50.9 % (42-75); PLATELET COUNT 438 X10'3 (140-440); RED BLOOD COUNT 3.33 X10'6 (4.20-5.60); RED CELL DISTRIBUTION WIDTH 15.1 % (11.5-14.5); WHITE BLOOD COUNT 8.5 X10'3 (4.5-11.0)
[2017-07-12 06:09] LABS: ALANINE AMINOTRANSFERASE 16 U/L (12-78); ALBUMIN 1.8 G/DL (3.4-5.0); ALBUMIN/GLOBULIN RATIO 0.2 (1.1-1.5); ALKALINE PHOSPHATASE 332 IU/L (46-116); ANION GAP 11 (8-16); ASPARTATE AMINO TRANSFERASE 28 U/L (10-37); BILIRUBIN,TOTAL 0.2 MG/DL (0.1-1.0); BLOOD UREA NITROGEN 46 MG/DL (7-18); BUN/CREATININE RATIO 8.9 (6.6-38.0); CALCIUM 11.1 MG/DL (8.5-10.1); CHLORIDE 103 MMOL/L (99-107); CREATININE 5.16 MG/DL (0.40-0.90); POTASSIUM 4.5 MMOL/L (3.5-5.1); SODIUM 139 MMOL/L (135-145); TOTAL CARBON DIOXIDE 24.6 MMOL/L (24-32); TOTAL PROTEIN 10.1 G/DL (6.4-8.2); eGFR 10 ML/MIN
[2017-07-12 06:11] LABS: GLUCOSE 104 MG/DL (70-104)
[2017-07-12] MEDS: cefazolin 1gm/NS 100mL 100 ML IV SCH (07:46)
[2017-07-12] MEDS: lactobacillus rhamnosus 10,000 MMU CELLS/CAPSULE PO SCH ×2 (07:59→21:13)
[2017-07-12] MEDS: heparin, porcine 5000 units/ml vial SQ SCH ×2 (07:59→20:00)
[2017-07-12] MEDS: metoprolol tartrate 25mg tablet PO SCH ×2 (07:59→21:13)
[2017-07-12] MEDS: HYDROcodone/acetaminophen 10/325mg tab PO PRN (08:01)
[2017-07-12] MEDS: nicotine 7mg patch - 24hr TD SCH (08:01)
[2017-07-12] MEDS: famotidine 20mg tablet PO SCH ×2 (08:01→21:13)
[2017-07-12] MEDS ORDERED: heparin 1,000unit/ml 10ml vial 10 ML IV ONE (09:58)
[2017-07-12] MEDS ORDERED: heparin 1,000 units/ml 10ml inj IV ONE (10:00)
[2017-07-12] MEDS ORDERED: albumin (human) 25% 100ml IV 100 ML IV PRN (10:00)
[2017-07-12] MEDS ORDERED: epoetin 20,000 units/ml inj IV ONE (10:00)
[2017-07-12] MEDS ORDERED: heparin 1,000 units/ml 10ml inj HE ONE ×2 (10:05)
[2017-07-12] MEDS: sodium ferric gluc complex inj 125 MG in normal saline 100ml IV soln 100 ML IV SCH (11:08)
[2017-07-13 02:00] VITALS: BP 94/53
[2017-07-13 06:00] VITALS: BP 93/55
[2017-07-13 07:17] LABS: BASOPHILS % (AUTO) 0.2 % (0-1); EOSINOPHILS # (AUTO) 0.2 X10'3 (0-0.9); EOSINOPHILS % (AUTO) 1.4 % (0-6); HEMATOCRIT 29.7 % (35.0-45.0); HEMOGLOBIN 9.9 g/dl (12.0-16.0); LYMPHOCYTES # (AUTO) 2.6 X10'3 (1.1-4.8); MEAN CORPUSCULAR HEMOGLOBIN 26.9 PG (27.0-31.0); MEAN CORPUSCULAR HGB CONC 33.4 % (33.0-36.5); MEAN CORPUSCULAR VOLUME 80.7 FL (78-98); MEAN PLATELET VOLUME 6.6 FL (7.4-10.4); MONOCYTES # (AUTO) 0.6 X10'3 (0-0.9); MONOCYTES % (AUTO) 5.3 % (2-12); NEUTROPHILS # (AUTO) 8.5 X10'3 (1.8-7.7); NEUTROPHILS % (AUTO) 71.1 % (42-75); PLATELET COUNT 501 X10'3 (140-440); RED BLOOD COUNT 3.68 X10'6 (4.20-5.60); WHITE BLOOD COUNT 11.9 X10'3 (4.5-11.0)
[2017-07-13 07:32] LABS: ALANINE AMINOTRANSFERASE 15 U/L (12-78); ALBUMIN 2.2 G/DL (3.4-5.0); ALBUMIN/GLOBULIN RATIO 0.2 (1.1-1.5); ALKALINE PHOSPHATASE 316 IU/L (46-116); ANION GAP 11 (8-16); ASPARTATE AMINO TRANSFERASE 21 U/L (10-37); BILIRUBIN,TOTAL 0.3 MG/DL (0.1-1.0); BLOOD UREA NITROGEN 37 MG/DL (7-18); BUN/CREATININE RATIO 7.6 (6.6-38.0); CALCIUM 11.4 MG/DL (8.5-10.1); CHLORIDE 99 MMOL/L (99-107); CREATININE 4.89 MG/DL (0.40-0.90); GLUCOSE 103 MG/DL (70-104); POTASSIUM 5.4 MMOL/L (3.5-5.1); SODIUM 134 MMOL/L (135-145); TOTAL CARBON DIOXIDE 24.2 MMOL/L (24-32); TOTAL PROTEIN 11.1 G/DL (6.4-8.2); eGFR 11 ML/MIN
[2017-07-13] MEDS: heparin, porcine 5000 units/ml vial SQ SCH ×2 (08:00→20:00)
[2017-07-13] MEDS: metoprolol tartrate 25mg tablet PO SCH ×2 (08:00→20:05)
[2017-07-13] MEDS: famotidine 20mg tablet PO SCH ×2 (09:03→20:05)
[2017-07-13] MEDS: lactobacillus rhamnosus 10,000 MMU CELLS/CAPSULE PO SCH ×2 (09:03→20:05)
[2017-07-13] MEDS: nicotine 7mg patch - 24hr TD SCH (09:03)
[2017-07-13] MEDS: cefazolin 1gm/NS 100mL 100 ML IV SCH (09:04)
[2017-07-13] MEDS ORDERED: sodium polystyrene sulfonate 15gm/60ml oral suspension PO ONE (09:50)
[2017-07-13 11:00] VITALS: BP 105/71
[2017-07-13] MEDS: sodium ferric gluc complex inj 125 MG in normal saline 100ml IV soln 100 ML IV SCH (12:54)
[2017-07-13 15:00] VITALS: BP 100/58
[2017-07-13 19:00] VITALS: BP 128/77
[2017-07-13] MEDS: HYDROcodone/acetaminophen 10/325mg tab PO PRN (21:13)
[2017-07-13 21:40] LABS: URINE AMPHETAMINE SCREEN NEGATIVE (Neg); URINE BARBITUATE SCREEN NEGATIVE (Neg); URINE BENZODIAZEPINES SCREEN NEGATIVE (Neg); URINE CANNABINOID SCREEN NEGATIVE (Neg); URINE COCAINE SCREEN NEGATIVE (Neg); URINE METHADONE SCREEN NEGATIVE (Neg); URINE OPIATE SCREEN POSITIVE (Neg); URINE PHENCYCLIDINE SCREEN NEGATIVE (Neg)
[2017-07-13 23:00] VITALS: BP 114/63
[2017-07-14 03:00] VITALS: BP 126/67
[2017-07-14 06:00] VITALS: BP 109/57
[2017-07-14 06:50] LABS: BASOPHILS % (AUTO) 0.2 % (0-1); EOSINOPHILS # (AUTO) 0.3 X10'3 (0-0.9); EOSINOPHILS % (AUTO) 2.2 % (0-6); HEMATOCRIT 27.2 % (35.0-45.0); HEMOGLOBIN 9.1 g/dl (12.0-16.0); LYMPHOCYTES % (AUTO) 22.6 % (21-51); MEAN CORPUSCULAR HEMOGLOBIN 27.2 PG (27.0-31.0); MEAN CORPUSCULAR HGB CONC 33.6 % (33.0-36.5); MEAN PLATELET VOLUME 6.7 FL (7.4-10.4); MONOCYTES % (AUTO) 7.5 % (2-12); NEUTROPHILS % (AUTO) 67.5 % (42-75); PLATELET COUNT 439 X10'3 (140-440); RED BLOOD COUNT 3.35 X10'6 (4.20-5.60); RED CELL DISTRIBUTION WIDTH 15.2 % (11.5-14.5); WHITE BLOOD COUNT 13.3 X10'3 (4.5-11.0)
[2017-07-14 07:07] LABS: ANION GAP 9 (8-16); BLOOD UREA NITROGEN 53 MG/DL (7-18); BUN/CREATININE RATIO 8.3 (6.6-38.0); CALCIUM 10.5 MG/DL (8.5-10.1); CHLORIDE 98 MMOL/L (99-107); CREATININE 6.37 MG/DL (0.40-0.90); SODIUM 133 MMOL/L (135-145); TOTAL CARBON DIOXIDE 25.7 MMOL/L (24-32); eGFR 8 ML/MIN
[2017-07-14 07:11] LABS: GLUCOSE 96 MG/DL (70-104)
[2017-07-14] MEDS: nicotine 7mg patch - 24hr TD SCH (07:13)
[2017-07-14] MEDS: famotidine 20mg tablet PO SCH (07:13)
[2017-07-14] MEDS: lactobacillus rhamnosus 10,000 MMU CELLS/CAPSULE PO SCH (07:14)
[2017-07-14] MEDS: metoprolol tartrate 25mg tablet PO SCH (07:14)
[2017-07-14] MEDS: HYDROcodone/acetaminophen 10/325mg tab PO PRN (07:16)
[2017-07-14] MEDS ORDERED: heparin 1,000 units/ml 10ml inj IV ONE (08:00)
[2017-07-14] MEDS ORDERED: epoetin 20,000 units/ml inj IV ONE (08:00)
[2017-07-14] MEDS ORDERED: albumin (human) 25% 100ml IV 100 ML IV PRN (08:00)
[2017-07-14] MEDS: heparin, porcine 5000 units/ml vial SQ SCH (08:00)
[2017-07-14] MEDS ORDERED: heparin 1,000unit/ml 10ml vial 10 ML IV ONE (08:00)
[2017-07-14] MEDS ORDERED: heparin 1,000 units/ml 10ml inj HE ONE ×2 (08:00)
[2017-07-14 09:55] LABS: OCCULT BLOOD STOOL NEGATIVE (Neg)
[2017-07-14] MEDS: sodium ferric gluc complex inj 125 MG in normal saline 100ml IV soln 100 ML IV SCH (10:47)
[2017-07-14 11:00] VITALS: BP 106/68
[2017-07-14 15:00] VITALS: BP 99/63
[2017-07-15 11:18] LABS: HBSAG SCREEN Negative (Negative)
== END 2017-07-14 16:00 | disposition home or self-care (01) | DRG 871 ==
LOC: ER 11:24 → ED HOLD 16:30 → PCU 3S 07-02 08:10
PROVIDERS: ADMIT Family Medicine; ATTEND Internal Medicine Critical Care Medicine
PROC: 0J9630Z Drainage of Chest Subcutaneous Tissue and Fascia with Drainage Device, Percutaneous Approach (ICD-10-PCS; principal; 2017-07-08)
PROC: 0JH63XZ Insertion of Tunneled Vascular Access Device into Chest Subcutaneous Tissue and Fascia, Percutaneous Approach (ICD-10-PCS; 2017-07-09)
PROC: 02H633Z Insertion of Infusion Device into Right Atrium, Percutaneous Approach (ICD-10-PCS; 2017-07-09)
PROC: B244ZZZ Ultrasonography of Right Heart (ICD-10-PCS; 2017-07-09)
PROC: 30233N1 Transfusion of Nonautologous Red Blood Cells into Peripheral Vein, Percutaneous Approach (ICD-10-PCS; 2017-07-10)
PROC: 5A1D70Z Performance of Urinary Filtration, Intermittent, Less than 6 Hours Per Day (ICD-10-PCS; 2017-07-11)
PROC: 5A1D70Z Performance of Urinary Filtration, Intermittent, Less than 6 Hours Per Day (ICD-10-PCS; 2017-07-14)
DX: A41.01 Sepsis due to Methicillin susceptible Staphylococcus aureus (principal); N17.0 Acute kidney failure with tubular necrosis; L02.213 Cutaneous abscess of chest wall; E87.5 Hyperkalemia; N30.90 Cystitis, unspecified without hematuria; G89.29 Other chronic pain; B96.20 Unspecified Escherichia coli [E. coli] as the cause of diseases classified elsewhere; E83.42 Hypomagnesemia; A49.01 Methicillin susceptible Staphylococcus aureus infection, unspecified site; N18.3 Chronic kidney disease, stage 3 (moderate); F15.10 Other stimulant abuse, uncomplicated; Z60.2 Problems related to living alone; F17.210 Nicotine dependence, cigarettes, uncomplicated; Z90.5 Acquired absence of kidney; Z88.1 Allergy status to other antibiotic agents; Z88.6 Allergy status to analgesic agent; Z87.440 Personal history of urinary (tract) infections; Z82.61 Family history of arthritis; Z82.3 Family history of stroke; Z80.3 Family history of malignant neoplasm of breast; Z82.49 Family history of ischemic heart disease and other diseases of the circulatory system; Z80.9 Family history of malignant neoplasm, unspecified
CPT/HCPCS: 10160; 36415; 36558; 71045; 71250; 71550; 73200; 76775; 76937; 76942; 77001; 80048; 80053; 80076; 80202; 80305; 80320; 81001; 82272; 82550; 82553; 82570; 82728; 83540; 83550; 83605; 83615; 83690; 83735; 83880; 84484; 84703; 85025; 85379; 85610; 85651; 85730; 86885; 86900; 86901; 86920; 87040; 87070; 87077; 87088; 87186; 87340; 93005; 93306; 96361; 96372; 96374; 97116; 97161; 97530; 99152; 99153; 99285; A4315; A4565; A6257; A6449; C1750; C1894; C9113; G0257; J0456; J0690; J0696; J0885; J1170; J1200; J1644; J2001; J2150; J2250; J2270; J2916; J3010; J3370; J3490; J7030; J7040; J7070; P9016; Q0163

== ENCOUNTER 2017-07-19 08:03 | Emergency (ER) | payer MEDICARE, OTHER ==
[~2017-07-19] VITALS: Ht 182.9 cm; Wt 68.1 kg
[~2017-07-19 08:03] MED LIST changes: -CIPR-230 PO
[2017-07-19 08:35] LABS: BASOPHILS % (AUTO) 0.5 % (0-1); EOSINOPHILS # (AUTO) 0.3 X10'3 (0-0.9); EOSINOPHILS % (AUTO) 3.1 % (0-6); HEMATOCRIT 27.6 % (35.0-45.0); HEMOGLOBIN 9.2 g/dl (12.0-16.0); MEAN CORPUSCULAR HEMOGLOBIN 27.4 PG (27.0-31.0); MEAN CORPUSCULAR HGB CONC 33.3 % (33.0-36.5); MEAN CORPUSCULAR VOLUME 82.2 FL (78-98); MEAN PLATELET VOLUME 6.5 FL (7.4-10.4); MONOCYTES # (AUTO) 0.9 X10'3 (0-0.9); MONOCYTES % (AUTO) 10.7 % (2-12); NEUTROPHILS # (AUTO) 4.1 X10'3 (1.8-7.7); NEUTROPHILS % (AUTO) 49.7 % (42-75); PLATELET COUNT 361 X10'3 (140-440); RED BLOOD COUNT 3.36 X10'6 (4.20-5.60); RED CELL DISTRIBUTION WIDTH 15.7 % (11.5-14.5); WHITE BLOOD COUNT 8.3 X10'3 (4.5-11.0)
[2017-07-19 08:46] LABS: PARTIAL THROMBOPLASTIN TIME 26 SECONDS (22-32); PROTHROMBIN TIME 10.8 SECONDS (9.0-12.0)
[2017-07-19 08:50] LABS: ALANINE AMINOTRANSFERASE 12 U/L (12-78); ALBUMIN 2.3 G/DL (3.4-5.0); ALBUMIN/GLOBULIN RATIO 0.3 (1.1-1.5); ALKALINE PHOSPHATASE 184 IU/L (46-116); ANION GAP 9 (8-16); ASPARTATE AMINO TRANSFERASE 17 U/L (10-37); BILIRUBIN,TOTAL 0.2 MG/DL (0.1-1.0); BLOOD UREA NITROGEN 60 MG/DL (7-18); BUN/CREATININE RATIO 9.6 (6.6-38.0); CALCIUM 11.4 MG/DL (8.5-10.1); CHLORIDE 105 MMOL/L (99-107); CREATININE 6.24 MG/DL (0.40-0.90); POTASSIUM 4.4 MMOL/L (3.5-5.1); SODIUM 140 MMOL/L (135-145); TOTAL CARBON DIOXIDE 25.6 MMOL/L (24-32); TOTAL PROTEIN 10.2 G/DL (6.4-8.2); eGFR 8 ML/MIN
[2017-07-19 08:52] LABS: GLUCOSE 73 MG/DL (70-104)
[2017-07-19 09:19] VITALS: BP 99/56
== END 2017-07-19 09:33 | disposition home or self-care (01) ==
LOC: ER 08:03
DX: R07.89 Other chest pain (principal); N18.9 Chronic kidney disease, unspecified; F15.10 Other stimulant abuse, uncomplicated; Z90.5 Acquired absence of kidney; Z60.2 Problems related to living alone; Z99.2 Dependence on renal dialysis; Z88.1 Allergy status to other antibiotic agents; Z79.899 Other long term (current) drug therapy
CPT/HCPCS: 36415; 71045; 80053; 84484; 85025; 85610; 85730; 93005; 99285

== ENCOUNTER 2017-12-13 19:24 | Emergency (ER) | payer MEDICARE, OTHER ==
[~2017-12-13] VITALS: Ht 182.9 cm; Wt 68.1 kg
[~2017-12-13 19:24] MED LIST changes: -HYDR-3965 PO
[2017-12-13] MEDS ORDERED: ondansetron/PF 4mg/2ml inj IV ONE (19:30)
[2017-12-13] MEDS: morphine 4 MG/ML inj SYRINge IV PRN ×2 (19:39→21:18)
[2017-12-13 19:59] LABS: BASOPHILS % (AUTO) 0.1 % (0-1); EOSINOPHILS # (AUTO) 0.1 X10'3 (0-0.9); EOSINOPHILS % (AUTO) 0.5 % (0-6); HEMATOCRIT 26.7 % (35.0-45.0); HEMOGLOBIN 9.1 g/dl (12.0-16.0); LYMPHOCYTES # (AUTO) 1.3 X10'3 (1.1-4.8); LYMPHOCYTES % (AUTO) 7.8 % (21-51); MEAN CORPUSCULAR HEMOGLOBIN 28.5 PG (27.0-31.0); MEAN CORPUSCULAR HGB CONC 33.9 % (33.0-36.5); MEAN CORPUSCULAR VOLUME 84.2 FL (78-98); MEAN PLATELET VOLUME 8.9 FL (7.4-10.4); MONOCYTES % (AUTO) 6.5 % (2-12); NEUTROPHILS # (AUTO) 13.8 X10'3 (1.8-7.7); NEUTROPHILS % (AUTO) 85.1 % (42-75); PLATELET COUNT 74 X10'3 (140-440); RED BLOOD COUNT 3.17 X10'6 (4.20-5.60); RED CELL DISTRIBUTION WIDTH 15.7 % (11.5-14.5); WHITE BLOOD COUNT 16.2 X10'3 (4.5-11.0)
[2017-12-13 20:07] LABS: URINE HCG NEGATIVE (NEG)
[2017-12-13 20:09] LABS: CLARITY,URINE SLIGHTLY CLOUDY (Clear); COLOR,URINE YELLOW (Yellow); GLUCOSE, URINE NEGATIVE (Neg); KETONES,URINE NEGATIVE (Neg); LEUKOCYTE ESTERASE ,URINE MODERATE (Neg); NITRITES, URINE NEGATIVE (Neg); OCCULT BLOOD,URINE LARGE (Neg); PROTEIN,URINE 100 mg/dl (Neg); UROBILINOGEN,URINE 0.2 E.U/dL (0.2-1.0)
[2017-12-13 20:13] LABS: ALANINE AMINOTRANSFERASE 24 U/L (12-78); ALBUMIN 2.4 G/DL (3.4-5.0); ALBUMIN/GLOBULIN RATIO 0.5 (1.1-1.5); ALKALINE PHOSPHATASE 144 IU/L (46-116); ANION GAP 15 (8-16); ASPARTATE AMINO TRANSFERASE 14 U/L (10-37); BILIRUBIN,TOTAL 0.5 MG/DL (0.1-1.0); BLOOD UREA NITROGEN 87 MG/DL (7-18); CHLORIDE 103 MMOL/L (99-107); LIPASE 120 U/L (73-393); POTASSIUM 4.2 MMOL/L (3.5-5.1); SODIUM 132 MMOL/L (135-145); TOTAL PROTEIN 7.1 G/DL (6.4-8.2); eGFR 8 ML/MIN
[2017-12-13 20:16] LABS: UA COLLECTION TYPE CLN CATCH MIDSTREAM
[2017-12-13 20:16] LABS: GLUCOSE 114 MG/DL (70-104)
[2017-12-13 20:19] LABS: BACTERIA,URINE FEW /HPF (Neg); SQUAMOUS EPITHELIAL CELL,UR FEW /LPF (FEW)
[2017-12-13] MEDS ORDERED: CefTRIAXone 2gm/D5W 50ml 50 ML IV ONE (20:25)
[2017-12-13] MEDS ORDERED: morphine 4 MG/ML inj SYRINge IV PRN (20:55)
[2017-12-13] MEDS ORDERED: normal saline 1000ML IV soln IVB ONE (20:55)
[2017-12-13] MEDS ORDERED: CIPR-260 PO (22:48)
[2017-12-13] MEDS ORDERED: ONDA8TAB9 PO (22:48)
[2017-12-13] MEDS ORDERED: HYDR-565 PO (22:48)
[2017-12-13 23:13] VITALS: BP 113/64
== END 2017-12-13 23:15 | disposition home or self-care (01) ==
LOC: ER 19:25
DX: N10 Acute pyelonephritis (principal); N18.9 Chronic kidney disease, unspecified; F15.90 Other stimulant use, unspecified, uncomplicated; Z98.890 Other specified postprocedural states; Z90.5 Acquired absence of kidney; Z60.2 Problems related to living alone; Z88.1 Allergy status to other antibiotic agents; Z79.899 Other long term (current) drug therapy; Z59.0 Homelessness; Z99.2 Dependence on renal dialysis
CPT/HCPCS: 36415; 74176; 80053; 81001; 81025; 83690; 85025; 87088; 96365; 96375; 99285; J0696; J2270; J2405; J7030

== ENCOUNTER 2018-12-21 07:08 | Day surgery (SDC) | payer MEDICARE, MEDICAID ==
[~2018-12-21] VITALS: Ht 185.4 cm; Wt 68.4 kg
[~2018-12-21 07:08] MED LIST changes: +CIPR-260 PO; +ONDA8TAB9 PO
[2018-12-21] MEDS ORDERED: normal saline 1000ml 1,000 ML IV SCH (07:30)
[2018-12-21] MEDS ORDERED: LIDOcaine 1% (10mg/ml) 2ml vial ONE (07:42)
[2018-12-21] MEDS ORDERED: CALC0.253 PO (08:19)
[2018-12-21] MEDS ORDERED: CALC500T11 PO (08:19)
[2018-12-21] MEDS ORDERED: VARE0.5T PO (08:19)
[2018-12-21] MEDS ORDERED: FOLI1TAB34 PO (08:19)
[2018-12-21 08:23] LABS: BASOPHILS % (AUTO) 0.5 % (0-1); EOSINOPHILS # (AUTO) 0.1 X10'3 (0-0.9); EOSINOPHILS % (AUTO) 1.9 % (0-6); HEMOGLOBIN 7.7 g/dl (12.0-16.0); LYMPHOCYTES # (AUTO) 3.1 X10'3 (1.1-4.8); LYMPHOCYTES % (AUTO) 43.8 % (21-51); MEAN CORPUSCULAR HEMOGLOBIN 27.2 PG (27.0-31.0); MEAN CORPUSCULAR HGB CONC 30.7 g/dL (33.0-36.5); MEAN CORPUSCULAR VOLUME 88.7 FL (78-98); MEAN PLATELET VOLUME 7.2 FL (7.4-10.4); MONOCYTES # (AUTO) 0.7 X10'3 (0-0.9); NEUTROPHILS # (AUTO) 3.1 X10'3 (1.8-7.7); NEUTROPHILS % (AUTO) 43.8 % (42-75); PLATELET COUNT 253 X10'3 (140-440); RED BLOOD COUNT 2.82 X10'6 (4.20-5.60); RED CELL DISTRIBUTION WIDTH 18.4 % (11.5-14.5); WHITE BLOOD COUNT 7.2 X10'3 (4.5-11.0)
[2018-12-21] MEDS ORDERED: midazolam 2 mg/2 ml injection IV PRN (08:25)
[2018-12-21] MEDS ORDERED: LIDOcaine 1%/PF 5ML 10 MG/ML VIAL SQ ONE (08:25)
[2018-12-21] MEDS ORDERED: fentaNYL/PF 50MCG/1 ML 2ML syringe IV PRN (08:25)
[2018-12-21] MEDS ORDERED: heparin 1,000 units/ml 10ml inj ICATH ONE (08:25)
[2018-12-21 08:30] VITALS: BP 132/72
[2018-12-21] MEDS ORDERED: LIDOcaine 1%/PF 5ML 10 MG/ML VIAL ONE (08:34)
[2018-12-21 08:35] LABS: ALBUMIN 2.1 G/DL (3.4-5.0); ANION GAP 17 (8-16); BLOOD UREA NITROGEN 62 MG/DL (7-18); BUN/CREATININE RATIO 6.8 (6.6-38.0); CALCIUM 6.1 MG/DL (8.5-10.1); CHLORIDE 110 MMOL/L (99-107); CREATININE 9.14 MG/DL (0.40-0.90); GLUCOSE 78 MG/DL (70-104); POTASSIUM 5.1 MMOL/L (3.5-5.1); SODIUM 144 MMOL/L (135-145); TOTAL CARBON DIOXIDE 16.7 MMOL/L (24-32); eGFR 5 ML/MIN
[2018-12-21] MEDS ORDERED: midazolam 2 mg/2 ml injection ONE ×2 (08:42→09:25)
[2018-12-21] MEDS ORDERED: heparin 1,000unit/ml 10ml vial 10 ML ONE (08:42)
[2018-12-21] MEDS ORDERED: fentaNYL/PF 50MCG/1 ML 2ML syringe ONE ×2 (08:42→09:23)
[2018-12-21] MEDS ORDERED: iohexol 300 MG/1 ML 50ml polymer ONE (09:20)
[2018-12-21 10:30] VITALS: BP 121/69
[2018-12-21 11:10] VITALS: BP 120/71
== END 2018-12-21 11:20 | disposition home or self-care (01) ==
LOC: SSTAY O 07:08
PROVIDERS: ATTEND Radiology Vascular & Interventional Radiology
DX: N18.6 End stage renal disease (principal); Z98.890 Other specified postprocedural states; Z90.5 Acquired absence of kidney; Z79.2 Long term (current) use of antibiotics; Z88.1 Allergy status to other antibiotic agents; Z79.899 Other long term (current) drug therapy; Z82.3 Family history of stroke; Z80.3 Family history of malignant neoplasm of breast; Z82.49 Family history of ischemic heart disease and other diseases of the circulatory system
CPT/HCPCS: 36415; 36558; 76937; 77001; 80048; 85025; 85610; 99152; 99153; C1750; C1769; C1894; J1644; J2001; J2250; J3010; J7030; Q9967

== ENCOUNTER 2018-12-22 15:40 | Emergency (ER) | payer MEDICARE, MEDICAID ==
[~2018-12-22] VITALS: Ht 185.4 cm; Wt 68.1 kg
[~2018-12-22 15:40] MED LIST changes: +CALC0.253 PO; +CALC500T11 PO; -CIPR-260 PO; -CYCL-1 PO; +FOLI1TAB34 PO; -ONDA8TAB9 PO; +VARE0.5T PO
[2018-12-22] MEDS ORDERED: LIDOcaine 1% W/epiNEPHrine 1:100,000 20ml vial SQ ONE (16:00)
[2018-12-22] MEDS ORDERED: LIDOcaine 1% w/EPI 1:100,000 30ml vial (MDV) SQ ONE (16:05)
[2018-12-22 17:05] VITALS: BP 119/61
== END 2018-12-22 17:05 | disposition home or self-care (01) ==
LOC: ER 15:40
DX: T82.838A Hemorrhage due to vascular prosthetic devices, implants and grafts, initial encounter (principal); N18.6 End stage renal disease; F15.90 Other stimulant use, unspecified, uncomplicated; Z98.890 Other specified postprocedural states; Z88.1 Allergy status to other antibiotic agents; Z79.2 Long term (current) use of antibiotics; Z79.899 Other long term (current) drug therapy; Y83.8 Other surgical procedures as the cause of abnormal reaction of the patient, or of later complication, without mention of misadventure at the time of the procedure; Y92.89 Other specified places as the place of occurrence of the external cause
CPT/HCPCS: 99283

== ENCOUNTER 2019-01-25 11:42 | Day surgery (SDC) | payer MEDICARE, MEDICAID ==
[~2019-01-25] VITALS: Ht 185.4 cm; Wt 68.9 kg
[2019-01-25] MEDS ORDERED: normal saline 1,000 ML IV SCH (12:05)
[2019-01-25] MEDS ORDERED: SEVE800T8 PO (13:02)
[2019-01-25] MEDS ORDERED: FOLI0.8T7 PO (13:02)
[2019-01-25] MEDS ORDERED: CEFD300C3 PO (13:02)
[2019-01-25 13:05] VITALS: BP 115/83
[2019-01-25] MEDS ORDERED: fentaNYL/PF 50MCG/1 ML 2ML syringe ONE ×3 (13:59→14:52)
[2019-01-25] MEDS ORDERED: heparin 1,000unit/ml 10ml vial 10 ML ONE (13:59)
[2019-01-25] MEDS ORDERED: midazolam 2 mg/2 ml injection ONE ×3 (13:59→14:52)
[2019-01-25] MEDS ORDERED: LIDOcaine 1%/PF 5ML 10 MG/ML VIAL ONE (13:59)
[2019-01-25] MEDS ORDERED: iohexol 300 MG/1 ML 50ml polymer ONE (14:46)
[2019-01-25 15:22] VITALS: BP 121/77
[2019-01-25 15:30] VITALS: BP 125/83
[2019-01-25] MEDS ORDERED: pneumococcal 23-VAL P-sac vacc 25 mcg/0.5ml vial IMVAC ONE (16:10)
== END 2019-01-25 16:30 | disposition home or self-care (01) ==
LOC: SSTAY O 11:42
PROVIDERS: ATTEND Radiology Diagnostic Radiology
DX: N18.6 End stage renal disease (principal); N13.8 Other obstructive and reflux uropathy; Z90.5 Acquired absence of kidney; Z88.1 Allergy status to other antibiotic agents; Z79.899 Other long term (current) drug therapy; Z98.890 Other specified postprocedural states
CPT/HCPCS: 36558; 76937; 77001; 99152; 99153; C1750; C1894; J1644; J2250; J3010; J7030; Q9967; A9270